=== PATIENT | male | born 1960 | race Caucasian/White ===

== ENCOUNTER 2017-06-30 18:01 | Emergency (ER) | payer BC ==
[2017-06-30 18:08] VITALS: BP 105/65; PULSE 68; TEMP 98.3; BMI 27.5
--- NOTE | 2017-06-30 18:09 | PDOC ---
Rapid Medical Evaluation Time Seen by Provider: 06/30/17 18:03 Medical Evaluation: 06/30/17 18:04 The patient presents with a chief complaint of: R calf pain since yesterday. Seen and evaluated in Urgent care today and instructed to f/u in an ER for US of the R leg. States that the pain has since resolved. No recent prolonged travel. Does not smoke. Denies chest pain, SOB I have performed a brief in-person evaluation of this patient; Pertinent physical exam findings: ambulatory, in no respiratory distress, No calf pain to R leg. (-) homans sign I have ordered the following: CBC, CMP, PT/INR, Doppler lower extremity The patient will proceed to the ED for further evaluation.
[2017-06-30 18:30] LABS: BASO % 0.9 % (0-2.0); EOS % 2.5 % (0-4.5); HEMATOCRIT 46.4 % (35.4-49); HEMOGLOBIN 15.6 GM/dL (11.7-16.9); LYMPH % 32.7 % (8-40); MCH 28.8 pg (25.7-33.7); MCHC 33.7 g/dl (32.0-35.9); MEAN CELL VOLUME 85.6 fl (80-96); MEAN PLT VOLUME 8.9 fl (7.5-11.1); MONO % 7.3 % (3.8-10.2); NEUT % 56.6 % (42.8-82.8); PLATELET COUNT 142 K/MM3 (134-434); RBC 5.42 M/mm3 (4.00-5.60); RDW 13.6 % (11.9-15.9); WHITE BLOOD COUNT 7.5 K/mm3 (4.0-10.0)
[2017-06-30 18:50] LABS: INR 0.99 (0.82-1.09); PROTHROMBIN TIME (PATIENT) 11.2 SEC (9.98-11.88)
[2017-06-30 18:55] LABS: ALBUMIN 4.1 g/dl (3.4-5.0); ALK PHOS 84 U/L (45-117); ANION GAP 5 (8-16); BILIRUBIN,TOTAL 0.6 mg/dL (0.2-1.0); BLOOD UREA NITROGEN 23 mg/dL (7-18); CALCIUM 8.8 mg/dL (8.5-10.1); CHLORIDE 103 mmol/L (98-107); CO2 30 mmol/L (21-32); CREATININE 0.9 mg/dL (0.7-1.3); GLUCOSE,RANDOM 87 mg/dL (74-106); POTASSIUM 4.5 mmol/L (3.5-5.1); SGOT/AST 16 U/L (15-37); SGPT/ALT 25 U/L (12-78); SODIUM 138 mmol/L (136-145); TOT PROT 7.5 g/dl (6.4-8.2)
--- NOTE | 2017-06-30 19:11 | PDOC ---
History of Present Illness - General Chief Complaint: Pain Stated Complaint: PCP SENT/RIGHT CALF PAIN Time Seen by Provider: 06/30/17 18:03 History Source: Patient Exam Limitations: No Limitations - History of Present Illness Initial Comments: 06/30/17 19:06 Patient is a [56-year-old male, denies any significant medical history currently on no medication presents for evaluation of 2 episodes of sudden onset of pain to muscle on right posterior leg patient reports it occurred twice after getting out of his van. Reports pain is stabbing, the muscle Tightening back of the lower leg , after the tightening relaxed he had residual pain radiating up to right thigh and down to right foot. Feels that right foot was pale after incident however he removed his sock when he was outside. Able to ambulate upon arrival with a dull ache to leg. Was seen at urgent care Center then sent to emergency department for ultrasound to rule out DVT Past Medical History: [Denies]. Allergies: No known allergies Medications: [None] Family History: Non-contributory Social History: Denies smoking, alcohol use, or IVDU Vital signs on arrival are [notable for pulse of 68 Review of Systems GENERAL/CONSTITUTIONAL: [No fever or chills. No weakness. No weight change.] HEAD, EYES, EARS, NOSE AND THROAT: [No change in vision. No ear pain or discharge. No sore throat. ] CARDIOVASCULAR: [No chest pain or shortness of breath.] RESPIRATORY: [No cough, wheezing, or hemoptysis.] GASTROINTESTINAL: [No nausea, vomiting, diarrhea or constipation. No rectal bleeding.] GENITOURINARY: [No dysuria, frequency, or change in urination.] MUSCULOSKELETAL: [No joint or muscle swelling or pain. No neck or back pain. Right calf tightening with dull ache to leg after release of muscle SKIN AND BREASTS: [No rash or easy bruising.] NEUROLOGIC: [No headache, vertigo, loss of consciousness, or loss of sensation.] PSYCHIATRIC: [No depression or anxiety.] ENDOCRINE: [No increased thirst. No abnormal weight change.] HEMATOLOGIC/LYMPHATIC: [No anemia, easy bleeding, or history of blood clots.] ALLERGIC/IMMUNOLOGIC: [No hives or skin allergy. No latex allergy.] Physical Exam: GENERAL: [The patient is awake, alert, and fully oriented, in no acute distress. ] HEAD: [Normal with no signs of trauma.] EYES: [Pupils equal, round and reactive to light, extraocular movements intact, sclera anicteric, conjunctiva clear.] ENT: [Ears normal, nares patent, oropharynx clear without exudates. Moist mucous membranes. No uvula deviation] NECK: [Normal range of motion, supple without lymphadenopathy, JVD, or masses.] LUNGS: [Breath sounds equal, clear to auscultation bilaterally. No wheezes, and no crackles.] HEART: [Regular rate and rhythm, normal S1 and S2 without murmur, rub or gallop. ] ABDOMEN: [Soft, nontender, normoactive bowel sounds. No guarding, no rebound. No masses. No bruising or abrasions] RECTAL : [Guaiac negative, normal rectal tone.] MUSCULOSKELETAL: [Normal range of motion, no edema. No clubbing or cyanosis. No cords, erythema, or tenderness. Bilateral calfs MEASURING at 14 inches. No erythema or edema. NEUROLOGICAL: [Cranial nerves II through XII grossly intact. Normal speech, normal gait.] PSYCH: [Normal mood, normal affect.] SKIN: [Warm, Dry, normal turgor, no rashes or lesions noted.] 06/30/17 19:08 06/30/17 19:09 Past History - Past Medical History Allergies/Adverse Reactions: Allergies Allergy/AdvReac Type Severity Reaction Status Date / Time No Known Allergies Allergy Verified 06/30/17 18:05 Home Medications: Ambulatory Orders Naproxen [Naprosyn] 500 mg PO BID #20 tablet 06/30/17 COPD: No Other medical history: DENIES. - Suicide/Smoking/Psychosocial Hx Smoking History: Never smoked *Physical Exam - Vital Signs Last Vital Signs Temp Pulse Resp BP Pulse Ox 98.3 F 68 19 105/65 97 06/30/17 18:05 06/30/17 18:05 06/30/17 18:05 06/30/17 18:05 06/30/17 18:05 ED Treatment Course - LABORATORY CBC & Chemistry Diagram: 06/30/17 18:21 06/30/17 18:21 - ADDITIONAL ORDERS Additional order review: Laboratory Results 06/30/17 06/30/17 18:21 18:21 PT with INR 11.20 INR 0.99 Sodium 138 Potassium 4.5 Chloride 103 Carbon Dioxide 30 Anion Gap 5 L BUN 23 H Creatinine 0.9 Creat Clearance w eGFR > 60 Random Glucose 87 Calcium 8.8 Total Bilirubin 0.6 AST 16 ALT 25 Alkaline Phosphatase 84 Total Protein 7.5 Albumin 4.1 06/30/17 18:21 RBC 5.42 MCV 85.6 MCHC 33.7 RDW 13.6 MPV 8.9 Neutrophils % 56.6 Lymphocytes % 32.7 Monocytes % 7.3 Eosinophils % 2.5 Basophils % 0.9 Medical Decision Making - Medical Decision Making 06/30/17 19:10 A/P: Patient with right calf pain we'll send labs, ultrasound. Laboratory Results - last 24 hr 06/30/17 06/30/17 06/30/17 18:21 18:21 18:21 WBC 7.5 RBC 5.42 Hgb 15.6 Hct 46.4 MCV 85.6 MCH 28.8 MCHC 33.7 RDW 13.6 Plt Count 142 MPV 8.9 Neutrophils % 56.6 Lymphocytes % 32.7 Monocytes % 7.3 Eosinophils % 2.5 Basophils % 0.9 PT with INR 11.20 INR 0.99 Sodium 138 Potassium 4.5 Chloride 103 Carbon Dioxide 30 Anion Gap 5 L BUN 23 H Creatinine 0.9 Creat Clearance w eGFR > 60 Random Glucose 87 Calcium 8.8 Total Bilirubin 0.6 AST 16 ALT 25 Alkaline Phosphatase 84 Total Protein 7.5 Albumin 4.1 Labs reviewed BUN mildly elevated otherwise labs unremarkable. Awaiting ultrasound 06/30/17 19:43 Ultrasound is negative for DVT. I've explained to patient that his BUN is mildly elevated will need to increase his fluid intake for mild dehydration. Sodium potassium are within normal limits. Otherwise labs are unremarkable. Will discharge on anti-inflammatories, Naprosyn if pain tomorrow. Recommend follow-up with primary care DrPat tomorrow. Patient is ambulating with a steady gait, no limp, no swelling to bilateral lower extremities prior to discharge. Vital signs stable. 06/30/17 19:51 *DC/Admit/Observation/Transfer Diagnosis at time of Disposition: Muscle spasm of right leg - Discharge Dispostion Disposition: HOME Condition at time of disposition: Stable Admit: No - Prescriptions Prescriptions: Naproxen [Naprosyn] 500 mg PO BID #20 tablet - Referrals Referrals: Mario Alberto Alanis MD [Primary Care Provider] - - Patient Instructions Additional Instructions: These make sure to increase her fluid intake in the next 24 hours. Please follow-up with primary care doctor tomorrow. A copy of your labs have been supplied to you please show your primary care doctor the results. Ultrasound demonstrated no clot in your leg. - Post Discharge Activity Forms/Work/School Notes: Back to Work
== END 2017-06-30 19:54 | disposition home or self-care (01) ==
LOC: JERFT 18:01
DX: M62.831 Muscle spasm of calf (principal)
CPT/HCPCS: 36415; 80053; 85025; 85610; 93971-TC; 99282-25